=== PATIENT | female | born 1975 | race Caucasian/White ===

== ENCOUNTER 2021-06-11 12:05 | Emergency (ER) | payer OTHER, SELFPAY ==
[2021-06-11] MEDS ORDERED: Sterile H2O 10 ml IJ ONE (12:18)
[2021-06-11] MEDS ORDERED: solu-MEDROL ONE (12:18)
[2021-06-11] MEDS ORDERED: BENADRYL 50 MG/ML ONE (12:18)
[2021-06-11] MEDS ORDERED: Sodium Chloride 0.9% 1000 ML 1,000 ML ONE (12:18)
[2021-06-11] MEDS ORDERED: Pepcid 20 MG VIAL IV ONE (12:18)
[2021-06-11 12:20] VITALS: O2SAT 99
[2021-06-11] MEDS ORDERED: EPINEPHRINE 1MG/ML AMP ONE (12:24)
[2021-06-11] MEDS: BENADRYL 50 MG/ML IV ONE (12:27)
[2021-06-11] MEDS: solu-MEDROL 125 MG, Sterile H2O 10 ml 2 ML IV ONE ×2 (12:28)
[2021-06-11] MEDS: Sodium Chloride 0.9% 1000 ML 1,000 ML IV STA (12:28)
[2021-06-11] MEDS: Pepcid 20 MG VIAL IV ONE (12:28)
--- NOTE | 2021-06-11 12:28 | ERPHSYRPT ---
- History of Present Illness Time Seen by Provider: 06/11/21 12:20 Source: patient Exam Limitations: no limitations Patient Subjective Stated Complaint: Pt stepped on a wasp and her lips and tongue are numb and she's feeling sleepy Triage Nursing Assessment: Pt brought to the ER by her boyfriend, hypertensive, rates pain as 3/10, no difficulty breathing, no swelling of the throat, right foot redness on bottom, doesn't appear to be in distress Physician History: Patient is a 45-year-old white female who was walking and stepped on a wasp. This occurred approximately 45 minutes prior to arrival she feels some numbness in the face and mouth lips etc. 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 He also complains of some itching in the skin. Timing/Duration: today Severity: moderate Modifying Factors: Improves With: nothing Associated Symptoms: shortness of breath Allergies/Adverse Reactions: bee venom protein (honey bee) Allergy (Verified 06/11/21 12:20) Travel Risk - International Travel Have you traveled outside of the country in past 3 weeks: No - Coronavirus Screening Are you exhibiting any of the following symptoms?: No Close contact with a COVID-19 positive Pt in past 14-21 Days: No - Vaccine Status Have you recieved a Covid-19 vaccination: No - Review of Systems Constitutional: Weakness, No Fever, No Chills Eyes: No Symptoms Ears, Nose, & Throat: No Symptoms, Throat Swelling Respiratory: Dyspnea, No Cough Cardiac: No Chest Pain, No Edema, No Syncope Abdominal/Gastrointestinal: No Abdominal Pain, No Nausea, No Vomiting, No Diarrhea Genitourinary Symptoms: No Dysuria Musculoskeletal: No Back Pain, No Neck Pain Skin: Other (Area of erythema plantar surface of the right foot), No Rash Neurological: No Dizziness, No Focal Weakness, No Sensory Changes Psychological: No Symptoms Endocrine: No Symptoms All Other Systems: Reviewed and Negative - Past Medical History Pertinent Past Medical History: Yes Respiratory History: Emphysema - Past Surgical History Past Surgical History: Yes Gastrointestinal: Cholecystectomy Female Surgical History: Tubal Ligation - Social History Smoking Status: Current every day smoker Exposure to second hand smoke: Yes Drug Use: none Patient Lives Alone: No - Female History Hx Now: No - Nursing Vital Signs Nursing Vital Signs: Initial Vital Signs Temperature 98.6 F 06/11/21 12:11 Pulse Rate 100 H 06/11/21 12:11 Blood Pressure 164/106 06/11/21 12:11 O2 Sat by Pulse Oximetry 99 06/11/21 12:11 Pain Scale Pain Intensity 0 - Physical Exam General Appearance: mild distress Eye Exam: PERRL/EOMI, eyes nml inspection Ears, Nose, Throat Exam: normal ENT inspection, TMs normal, pharynx normal, moist mucous membranes Neck Exam: normal inspection, non-tender, supple, full range of motion Respiratory Exam: normal breath sounds, lungs clear, No respiratory distress Cardiovascular Exam: regular rate/rhythm, normal heart sounds, normal peripheral pulses Gastrointestinal/Abdomen Exam: soft, normal bowel sounds, No tenderness, No mass Back Exam: normal inspection, normal range of motion, No CVA tenderness, No vertebral tenderness Extremity Exam: normal inspection, normal range of motion, pelvis stable Neurologic Exam: alert, oriented x 3, cooperative, normal mood/affect, nml cerebellar function, nml station & gait, sensation nml, No motor deficits Skin Exam: normal color, warm, dry, No rash Lymphatic Exam: No adenopathy SpO2 Interpretation: normal SpO2: 99 O2 Delivery: Room Air - Course Nursing assessment & vital signs reviewed: Yes Ordered Tests: Active Orders 24 hr Category Date Time Status 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 Care 06/11/21 12:29 Active IV Insertion STAT Care 06/11/21 12:17 Active Pulse Oximetry (ED) STAT Care 06/11/21 12:29 Active CBC W DIFF Stat Lab 06/11/21 12:15 Completed CMP Stat Lab 06/11/21 12:30 Completed Medication Summary Discontinued Medications Generic Name Dose Route Start Last Admin Trade Name Rossana PRN Reason Stop Dose Admin Methylprednisolone Sodium 0 mg 06/11/21 12:15 06/11/21 12:28 Succinate 125 mg/ Sterile IV 06/11/21 12:16 125 mg Water 2 ml STAT ONE Administration Diphenhydramine HCl 50 mg 06/11/21 12:15 06/11/21 12:27 Benadryl 50 Mg/Ml IV 06/11/21 12:16 50 mg STAT ONE Administration Diphenhydramine HCl Confirm 06/11/21 12:18 Benadryl 50 Mg/Ml Administered 06/11/21 12:19 Dose 50 mg .ROUTE .STK-MED ONE Epinephrine HCl Confirm 06/11/21 12:24 Epinephrine 1mg/Ml Amp Administered 06/11/21 12:25 Dose 1 mg .ROUTE .STK-MED ONE Famotidine 20 mg 06/11/21 12:15 06/11/21 12:28 Pepcid 20 Mg Vial IV 06/11/21 12:16 20 mg STAT ONE Administration Famotidine Confirm 06/11/21 12:18 Pepcid 20 Mg Vial Administered 06/11/21 12:19 Dose 20 mg IV .STK-MED ONE Sodium Chloride 1,000 mls @ 999 mls/hr 06/11/21 12:15 06/11/21 12:28 Sodium Chloride 0.9% 1000 Ml IV 06/11/21 13:15 999 mls/hr .Q1H1M STA Administration Sodium Chloride Confirm 06/11/21 12:18 Sodium Chloride 0.9% 1000 Ml Administered 06/11/21 12:19 Dose 1,000 mls @ ud .ROUTE .STK-MED ONE Methylprednisolone Sodium Succinate Confirm 06/11/21 12:18 Solu-Medrol Administered 06/11/21 12:19 Dose 125 mg .ROUTE .STK-MED ONE Sterile Water Confirm 06/11/21 12:18 Sterile H2o 10 Ml Administered 06/11/21 12:19 Dose 10 ml IJ .STK-MED ONE Lab/Rad Data: Laboratory Result Diagrams 06/11/21 12:15 06/11/21 12:30 Laboratory Results 06/11/21 06/11/21 Range/Units 12:30 12:15 WBC 7.9 (4.0-10.5) K/mm3 RBC 4.70 (4.1-5.4) M/mm3 Hgb 15.2 (12.0-16.0) gm/dl Hct 46.0 (35-47) % MCV 97.9 (78-100) fl MCH 32.3 H (26-32) pg MCHC 33.0 (32-36) g/dl RDW 13.7 (11.5-14.0) % Plt Count 200 (150-450) K/mm3 MPV 11.4 H (7.5-11.0) fl Gran % 55.0 (36.0-66.0) % Eos # (Auto) 0.19 (0-0.5) Absolute Lymphs (auto) 2.51 (1.0-4.6) Absolute Monos (auto) 0.84 (0.0-1.3) Lymphocytes % 31.7 (24.0-44.0) % Monocytes % 10.6 (0.0-12.0) % Eosinophils % 2.4 (0.00-5.0) % Basophils % 0.3 (0.0-0.4) % Absolute Granulocytes 4.35 (1.4-6.9) Basophils # 0.02 (0-0.4) Sodium 139 (137-145) mmol/L Potassium 3.7 (3.5-5.1) mmol/L Chloride 105 (98-107) mmol/L Carbon Dioxide 24 (22-30) mmol/L Anion Gap 13.5 (5-15) MEQ/L BUN 5 L (7-17) mg/dL Creatinine 0.57 (0.52-1.04) mg/dL Estimated GFR > 60.0 ML/MIN Glucose 106 (74-106) mg/dL Calcium 8.8 (8.4-10.2) mg/dL Total Bilirubin 0.50 (0.2-1.3) mg/dL AST 30 (14-36) U/L ALT 13 (0-35) U/L Alkaline Phosphatase 73 (38-126) U/L Serum Total Protein 6.8 (6.3-8.2) g/dL Albumin 3.9 (3.5-5.0) g/dL - Progress Progress: improved - Departure Departure Disposition: Home Clinical Impression: Allergic reaction Condition: Stable Critical Care Time: No Referrals: MARIA ESTHER TOLBERT [Primary Care Provider] - Instructions: Insect Bites and Stings (DC), Anaphylaxis (DC) Prescriptions: Prednisone 10 mg [Deltasone 10 mg] 10 mg PO TID 4 Days #12 tablet Epinephrine [Epipen] 0.3 mg IM UD PRN #2 ml PRN Reason: Allergies
[2021-06-11 12:44] LABS: Absolute Neutrophil Ct (ANC) 4.35 (1.4-6.9); BASOPHIL % 0.3 % (0.0-0.4); Basophil (Absolute #) 0.02 (0-0.4); Eosinophil % 2.4 % (0.00-5.0); Eosinophil (Absolute #) 0.19 (0-0.5); Hemoglobin 15.2 gm/dl (12.0-16.0); Lymphocyte (Absolute #) 2.51 (1.0-4.6); Lymphocytes % 31.7 % (24.0-44.0); Mean Cell Volume 97.9 fl (78-100); Mean Corpuscular Hemoglobin 32.3 pg (26-32); Mean Platelet Volume 11.4 fl (7.5-11.0); Monocyte (Absolute #) 0.84 (0.0-1.3); Monocytes % 10.6 % (0.0-12.0); Platelet Count 200 K/mm3 (150-450); Red Cell Distribution Width 13.7 % (11.5-14.0); White Blood Count 7.9 K/mm3 (4.0-10.5)
[2021-06-11 12:53] LABS: ALBUMIN 3.9 g/dL (3.5-5.0); ALKALINE PHOSPHATASE 73 U/L (38-126); ANION GAP 13.5 MEQ/L (5-15); BLOOD UREA NITROGEN 5 mg/dL (7-17); CHLORIDE 105 mmol/L (98-107); Calcium 8.8 mg/dL (8.4-10.2); Carbon Dioxide 24 mmol/L (22-30); Creatinine 1 0.57 mg/dL (0.52-1.04); EST GLOMERULAR FILTRATION RATE > 60.0 ML/MIN; Glucose 106 mg/dL (74-106); Potassium 3.7 mmol/L (3.5-5.1); SGOT/AST 30 U/L (14-36); SGPT/ALT 13 U/L (0-35); SODIUM 139 mmol/L (137-145); Total Protein 6.8 g/dL (6.3-8.2)
[2021-06-11 13:41] VITALS: BP 111/73; PULSE 76
== END 2021-06-11 13:48 | disposition home or self-care (01) ==
LOC: ED 12:05
DX: T78.40XA Allergy, unspecified, initial encounter (principal)
CPT/HCPCS: 36000; 36415; 80053; 85025; 93041; 94760; 96374; 96375; 99284; J0171; J1200; J2930